=== PATIENT | male | born 1965 | race Hispanic/Latino ===

== ENCOUNTER 2017-10-04 10:21 | Emergency (ER) | payer MEDICARE ==
[2017-10-04] MEDS ORDERED: OXYMETAZOLINE HCL SPRAY 15 ML BOTTLE ONE (10:37)
[2017-10-04 11:27] LABS: INR 0.97 (0.85-1.15); PARTIAL THROMBOPLASTIN TIME 25.2 SEC (26.3-35.5); PROTHROMBIN TIME 10.2 SEC (9.6-11.6)
[2017-10-04 11:55] LABS: CARBON DIOXIDE 24 mmol/L (21-32); CHLORIDE 107 mmol/L (101-111); CREATININE 5.1 mg/dL (0.5-1.5); GLOMERULAR FILTR. RATE CALC 13 mL/min (>60); GLUCOSE,RANDOM 154 mg/dL (70-105); POTASSIUM 4.7 mmol/L (3.5-5.1); SODIUM SERUM 141 mmol/L (136-145); UREA NITROGEN, BLOOD 71 mg/dL (7-18)
[2017-10-04 12:02] LABS: ALCOHOL, BLOOD < 3 mg/dL (0-10)
[2017-10-04 12:05] LABS: BASOPHILS % (AUTO) 0.9 % (0.0-5.0); EOSINOPHILS % (AUTO) 1.5 % (0.0-8.0); HEMATOCRIT 26.1 % (42-54); LYMPHOCYTES % (AUTO) 11.4 % (21.0-51.0); MEAN CORPUSCULAR HEMOGLOBIN 30.3 pg (27.0-33.0); MEAN CORPUSCULAR HGB CONC 33.3 g/dL (32.0-36.0); MONOCYTES % (AUTO) 5.8 % (3.0-13.0); NEUTROPHILS % (AUTO) 80.4 % (40.0-77.0); NUCLEATED RED BLOOD CELLS 0.1 % (0.0-0.19); PLATELET COUNT (AUTO) 212 K/uL (130-400); RED BLOOD CELL COUNT(AUTO) 2.87 MIL/uL (4.50-6.20); RED CELL DISTRIBUTION WIDTH 14.5 % (11.0-15.5); WHITE BLOOD COUNT (AUTO) 10.1 K/uL (4.8-10.8)
[2017-10-04 14:32] LABS: HEMATOCRIT 24.4 % (42-54)
== END 2017-10-04 15:39 | disposition home or self-care (01) ==
LOC: EDH 10:21
DX: R04.0 Epistaxis (principal); I10 Essential (primary) hypertension; E78.5 Hyperlipidemia, unspecified; Z79.82 Long term (current) use of aspirin; Z79.899 Other long term (current) drug therapy; R11.10 Vomiting, unspecified
CPT/HCPCS: 36415; 80048; 82140; 84484; 85025; 85610; 85730; 93005; 96360; 99285; G0480

== ENCOUNTER 2019-02-20 16:40 | Inpatient (IN) | payer MEDICARE | END 2019-02-24 16:40 | disposition left against medical advice (07) | LOC: EDH 16:40 → 2DH 02-22 22:05 → 4CH 02-21 13:20 → EDHIP 19:42 | DX: I12.0 Hypertensive chronic kidney disease with stage 5 chronic kidney disease or end stage renal disease (principal); N18.6 End stage renal disease; I48.91 Unspecified atrial fibrillation; N19 Unspecified kidney failure; E87.70 Fluid overload, unspecified; D64.9 Anemia, unspecified; E11.22 Type 2 diabetes mellitus with diabetic chronic kidney disease; E11.51 Type 2 diabetes mellitus with diabetic peripheral angiopathy without gangrene ==

== ENCOUNTER 2019-03-03 11:25 | Inpatient (IN) | payer MEDICARE ==
[~2019-03-03] VITALS: Ht 167.6 cm; Wt 48.2 kg
[2019-03-03] VITALS: BP 159/99
[~2019-03-03 11:25] MED LIST: ASPI-1181 PO; CLOP75TA32 PO; FERR325T22 PO; FOLI0.8T22 PO; HYDR100T27 PO; METO50 PO; NIFE90TA38 PO; PATI8.4P PO; PRAV40TA3 PO; SEVE800T7 PO; SODI650T PO; VIT D PO
[2019-03-03 11:59] LABS: BASOPHILS % (AUTO) 1.3 % (0.0-5.0); HEMATOCRIT 27.7 % (42-54); LYMPHOCYTES % (AUTO) 14.7 % (21.0-51.0); MEAN CORPUSCULAR HEMOGLOBIN 30.5 pg (27.0-33.0); MEAN CORPUSCULAR VOLUME 92.5 fL (79-99); PLATELET COUNT (AUTO) 136 K/uL (130-400); RED CELL DISTRIBUTION WIDTH 17.8 % (11.0-15.5); WHITE BLOOD COUNT (AUTO) 5.7 K/uL (4.8-10.8)
[2019-03-03 12:14] LABS: BILIRUBIN,TOTAL 0.4 mg/dL (0.2-1.0); POTASSIUM 4.7 mmol/L (3.5-5.1); TOTAL PROTEIN, SERUM 6.9 g/dL (6.0-8.3)
[2019-03-03 12:15] LABS: CREATININE 9.3 mg/dL (0.5-1.5)
[2019-03-03] MEDS ORDERED: GLUCAGON 1MG KIT 1 MG ML IM PRN (14:45)
[2019-03-03] MEDS ORDERED: ONDANSETRON HCL 4 MG/2 ML VIAL IVP PRN (14:45)
[2019-03-03] MEDS ORDERED: DEXTROSE 50%-WATER 50 ML DISP.SYRIN IV PRN (14:45)
[2019-03-03] MEDS ORDERED: ACETAMINOPHEN 325 MG TAB PO PRN ×2 (14:45→22:45)
[2019-03-03 16:15] VITALS: BP 129/81
--- NOTE | 2019-03-03 16:25 | NUR ---
REPORT RECEIVED FROM SAMANTA COLLAZO (ED). PATIENT ADMITTED UNDER DR. GAMEZ'S SERVICES FOR FLUID OVERLOAD AND ERSD. DR. THOMAS CONSULTED FOR LEFT AV FISTULA. DR. ACKERMANFILED AWARE OF CONSULT PER SAMANTA COLLAZO. PATIENT TO BE DIALYZED TODAY. PATIENT STABLE AT THIS TIME.
[2019-03-03] MEDS: INSULIN R PO SS1 SQ SCH ×2 (16:30→22:00)
[2019-03-03] MEDS ORDERED: FOLI1TAB85 PO (17:28)
[2019-03-03] MEDS ORDERED: FERR1GRA2 MC (17:28)
[2019-03-03] MEDS ORDERED: SEVE800T7 PO (17:28)
[2019-03-03] MEDS ORDERED: SODI454P2 MC (17:28)
[2019-03-03] MEDS ORDERED: FURO80TA3 PO (17:28)
[2019-03-03] MEDS ORDERED: PRAV40TA3 PO (17:28)
[2019-03-03] MEDS ORDERED: CHOL200059 PO (17:28)
[2019-03-03] MEDS ORDERED: ASPI-1197 PO (17:28)
[2019-03-03] MEDS ORDERED: HYDR100T27 PO (17:28)
[2019-03-03] MEDS ORDERED: NIFE90TA45 PO (17:28)
[2019-03-03] MEDS ORDERED: METO50TA18 PO (17:28)
[2019-03-03 20:00] VITALS: BP 131/76
[2019-03-03 20:26] LABS: HEMATOCRIT 26.6 % (42-54)
[2019-03-03 20:40] LABS: ALBUMIN 2.7 g/dL (3.5-5.0)
[2019-03-03 20:43] LABS: CREATININE 8.9 mg/dL (0.5-1.5)
[2019-03-03 20:46] LABS: HEMOGLOBIN A1C 4.8 % (4.0-6.0)
[2019-03-03] MEDS ORDERED: SODIUM CHLORIDE 0.9% 10 ML VIAL IVP PRN (22:45)
[2019-03-03] MEDS ORDERED: SODIUM CHLORIDE 0.9% 100 ML IV PRN (22:45)
[2019-03-03] MEDS ORDERED: HEPARIN SODIUM 5000UNIT/ML 1ML VIAL SQ PRN (23:00)
[2019-03-03] MEDS ORDERED: ALBUMIN (HUMAN) 25% 100 ML IV PRN (23:00)
[2019-03-04 04:00] VITALS: BP 155/92
[2019-03-04 04:59] LABS: HEMATOCRIT 24.9 % (42-54); MEAN CORPUSCULAR HEMOGLOBIN 30.9 pg (27.0-33.0); MEAN CORPUSCULAR HGB CONC 33.5 g/dL (32.0-36.0); MEAN CORPUSCULAR VOLUME 92.1 fL (79-99); RED BLOOD CELL COUNT(AUTO) 2.71 MIL/uL (4.50-6.20); RED CELL DISTRIBUTION WIDTH 17.5 % (11.0-15.5); WHITE BLOOD COUNT (AUTO) 5.4 K/uL (4.8-10.8)
[2019-03-04 05:14] LABS: CREATININE 4.5 mg/dL (0.5-1.5); PHOSPHORUS 3.9 mg/dL (2.5-4.9); POTASSIUM 3.3 mmol/L (3.5-5.1)
[2019-03-04 05:39] LABS: PLATELET COUNT (AUTO) 65 K/uL (130-400)
[2019-03-04] MEDS: INSULIN R PO SS1 SQ SCH ×4 (05:48→20:07)
[2019-03-04 07:30] VITALS: BP 155/99
[2019-03-04] MEDS: FAMOTIDINE/PF 20 MG/2 ML VIAL IV SCH (08:23)
--- NOTE | 2019-03-04 08:37 | NUR ---
spoke with luis devlin, dr. joiner's nurse aware of consult and aware of pt's status no new orders yet
--- NOTE | 2019-03-04 08:41 | NUR ---
dr Justino boateng for [facility].
--- NOTE | 2019-03-04 09:15 | NUR ---
DR. GAMEZ CALLED BACK, STATED WILL ROUND LATER ON PATIENT AND FOR PT TO HAVE HD TODAY, AWARE PT HAD HD YESTERDAY EARLY AT 1 AM, STATED AGAIN TODAY
--- NOTE | 2019-03-04 09:16 | NUR ---
HD NURSE AWARE OF ORDER FOR PT TO HAVE HD TODAY
--- NOTE | 2019-03-04 10:00 | NUR ---
DR. MELGOZA AWARE OF PT STATUS STATED HE HIMSELF WILL PUT ORDERS FOR SURGERY FOR WEDNESDAY AND IT WILL BE DR. NAVARRO,
[2019-03-04 11:00] VITALS: BP 158/98
--- NOTE | 2019-03-04 12:27 | NUR ---
INITIAL: Met with pt this morning to discuss dcp. Pt states that he lives w spouse. Prior to admission was independent w ambulation. He requires assistance w ADLs. Has provider services 3hr/day. Pt owns a cane, walker and wc. Per pt he was previously receiving HD @ [facility] but stopped going dt transportation issues. PT mentions that he is requesting to be set up @ [facility]. CORKY/PC consent signed for [facility]. Addendum: 03/04/19 at 1232 by TINY BATES Amended: Links added.
[2019-03-04] MEDS ORDERED: HEPARIN SODIUM 5000UNIT/ML 1ML VIAL IJ PRN (12:45)
--- NOTE | 2019-03-04 13:57 | NUR ---
DR. AYALA AWARE OF PT STATUS MADE AWAR OF SURGERY PLAN FOR AV FISTULA FOR WEDNESDAY WITH DR. NAVARRO, HE STATED HE HAD ALREADY SPOKEN WITH DR. SOLORZANO, MADE AWARE THAT DR. SOLORZANO HAD GIVEN ME ORDERS TO RESUME PATIENT'S HOME MEDICATIONS BUT HAD NOT RESUME THEM YET, SINCE I WAS WAITING FOR HIM. HE STATED THAT WAS GOOD, AND GAVE ME ORDERS REGARDING PT MEDICATIONS WHICH ONES TO CONTINUE AND WHICH ONES TO HOLD REFER TO MED REC FOR MORE INFORMATION
[2019-03-04] MEDS ORDERED: COMPOUND IV REFRIGERATED 1 EACH IVSOLN MISC PRN (14:15)
[2019-03-04] MEDS: IPRATROPIUM/ALBUTEROL SULFATE 3 ML SOLUTION IH PRN (14:43)
[2019-03-04] MEDS: EPOETIN ALFA 10,000 UNIT/ML VIAL SQ SCH (15:34)
[2019-03-04] MEDS: IRON SUCROSE COMPLEX 100 MG in SODIUM CHLORIDE 0.9% 50 ML IV SCH (15:35)
[2019-03-04 16:00] VITALS: BP 132/93
--- NOTE | 2019-03-04 16:44 | NUR ---
PT HAD HD FROM 1145 TO 1445 PT TOLERATED PROCEDURE WELL PER DIALYSIS NURSE REMOVED 2.7 LITERS
[2019-03-04] MEDS: SEVELAMER HCL 800 MG TABLET PO SCH (16:58)
[2019-03-04 20:00] VITALS: BP 159/104
[2019-03-04] MEDS: METOPROLOL TARTRATE 50 MG TAB PO SCH (20:04)
[2019-03-04] MEDS: ATORVASTATIN CALCIUM 10 MG TABLET PO SCH (20:04)
--- NOTE | 2019-03-04 20:49 | NUR ---
Paged Doctor Paged Dr. Cruz about pt's blood Pressure. Waiting for call back.
--- NOTE | 2019-03-04 20:54 | NUR ---
Nursing Note Dr. Cruz called back. I informed him that pt's blood pressure is 159/104 and I gave the metoprolol 50mg as ordered and blood pressure after recheck is 166/109 but I have nothing else to give him for his blood pressure. Dr. Cruz stated "Don't worry about it. Follow the orders on the DEC before you call me, he has metoprolol and nifedipine." I tried to explain to him that it wasn't given during day shift and there is nothing due for me except metoprolol. stated for me to give the metoprolol and nifedipine.
[2019-03-04] MEDS ORDERED: NIFEDIPINE ER 30 MG TAB PO SCH (21:15)
[2019-03-05] VITALS (7 sets, daily range): BP systolic 149–165; BP diastolic 92–108
[2019-03-05] MEDS: INSULIN R PO SS1 SQ SCH ×4 (05:35→21:00)
[2019-03-05 05:37] LABS: HEMATOCRIT 25.5 % (42-54); MEAN CORPUSCULAR HEMOGLOBIN 30.3 pg (27.0-33.0); MEAN CORPUSCULAR HGB CONC 33.1 g/dL (32.0-36.0); MEAN CORPUSCULAR VOLUME 91.4 fL (79-99); PLATELET COUNT (AUTO) 43 K/uL (130-400); RED BLOOD CELL COUNT(AUTO) 2.79 MIL/uL (4.50-6.20); RED CELL DISTRIBUTION WIDTH 17.4 % (11.0-15.5); WHITE BLOOD COUNT (AUTO) 5.7 K/uL (4.8-10.8)
[2019-03-05 06:08] LABS: CREATININE 4.3 mg/dL (0.5-1.5); PHOSPHORUS 4.5 mg/dL (2.5-4.9); POTASSIUM 4.1 mmol/L (3.5-5.1)
[2019-03-05 06:24] LABS: % IRON SATURATION 36.6 % (30-44)
[2019-03-05] MEDS: IPRATROPIUM/ALBUTEROL SULFATE 3 ML SOLUTION IH PRN (07:08)
[2019-03-05] MEDS: METOPROLOL TARTRATE 50 MG TAB PO SCH ×2 (08:33→22:09)
[2019-03-05] MEDS: NIFEDIPINE ER 30 MG TAB PO SCH (08:33)
[2019-03-05] MEDS: FAMOTIDINE/PF 20 MG/2 ML VIAL IV SCH (08:33)
[2019-03-05] MEDS: FOLIC ACID/VITAMIN B COMP W-C 1 MG CAPSULE PO SCH (08:33)
[2019-03-05] MEDS: SEVELAMER HCL 800 MG TABLET PO SCH ×3 (08:33→16:55)
[2019-03-05] MEDS ORDERED: COMPOUND IV MISC 1 EACH IVSOLN MISC PRN (09:30)
[2019-03-05] MEDS: IRON SUCROSE COMPLEX 100 MG in SODIUM CHLORIDE 0.9% 50 ML IV SCH (10:46)
[2019-03-05] MEDS: EPOETIN ALFA 10,000 UNIT/ML VIAL SQ SCH (12:35)
[2019-03-05] MEDS: ATORVASTATIN CALCIUM 10 MG TABLET PO SCH (22:09)
[2019-03-06] VITALS (15 sets, daily range): BP systolic 102–210; BP diastolic 71–109
[2019-03-06 05:15] LABS: HEMATOCRIT 24.2 % (42-54); MEAN CORPUSCULAR HEMOGLOBIN 31.2 pg (27.0-33.0); MEAN CORPUSCULAR VOLUME 91.6 fL (79-99); PLATELET COUNT (AUTO) 60 K/uL (130-400); RED BLOOD CELL COUNT(AUTO) 2.64 MIL/uL (4.50-6.20); RED CELL DISTRIBUTION WIDTH 17.4 % (11.0-15.5); WHITE BLOOD COUNT (AUTO) 5.5 K/uL (4.8-10.8)
[2019-03-06 05:26] LABS: CREATININE 5.7 mg/dL (0.5-1.5); POTASSIUM 4.3 mmol/L (3.5-5.1)
[2019-03-06 05:29] LABS: INR 0.97 (0.85-1.15); PARTIAL THROMBOPLASTIN TIME 29.6 SEC (26.3-35.5); PROTHROMBIN TIME 10.2 SEC (9.6-11.6)
--- NOTE | 2019-03-06 05:35 | NUR ---
CONSENT FO AV FISTULA SIGNED AND IN THE CHART. EDUCATIONAL TEACHING PROVIDED FOR PREOP AND POST. EXITCARE HANDOUTS PROVIDED. NO QUESTIONS FROM THE PATIENT AT THIS TIME.
[2019-03-06] MEDS: INSULIN R PO SS1 SQ SCH ×4 (06:16→21:00)
--- NOTE | 2019-03-06 06:30 | NUR ---
MD ORDER CLARIFICATION SMALL ARMS REPAIRER CONTACTED ALAYNA NAVARRO MD TO CLARIFY PREOP ORDERS. BLOOD PRODUCTS TO BE GIVEN NEEDED IN OR. PRE-OP CLIPPING OF LEFT UPPER EXTREMITY INSTEAD OF CHIN TO ANKLE.
--- NOTE | 2019-03-06 06:45 | NUR ---
NPO PATIENT INFORMED THAT HE WAS NPO UNTIL THE PROCEDURE, VERBALIZED AGREEMENT. PATIENT SERVED HIMSELF A CUP OF COFFEE, WAS ONCE AGAIN INFORMED THAT HE CAN NOT HAVE ANYTHING TO EAT OR DRINK UNTIL THE PROCEDURE. HE SAID, "IT'LL BE A LONG TIME UNTIL THEY COME GET ME" AND CONTINUED TO DRINK THE COFFEE.
--- NOTE | 2019-03-06 06:59 | NUR ---
Called Dr Montelongo to clarify order for Platelet and FFP.He said not to transfuse blood products now.
[2019-03-06] MEDS: IPRATROPIUM/ALBUTEROL SULFATE 3 ML SOLUTION IH PRN ×2 (07:12→21:17)
--- NOTE | 2019-03-06 07:48 | NUR ---
ANESTHESIA Called Fernando from Anesthesia re pt taking a cup of coffee.He said he will tell the anesthesiologist.No need to call dr story.
[2019-03-06] MEDS: SEVELAMER HCL 800 MG TABLET PO SCH ×3 (08:00→17:00)
[2019-03-06] MEDS: METOPROLOL TARTRATE 50 MG TAB PO SCH ×2 (09:00→22:37)
[2019-03-06] MEDS: NIFEDIPINE ER 30 MG TAB PO SCH (09:00)
[2019-03-06] MEDS: FOLIC ACID/VITAMIN B COMP W-C 1 MG CAPSULE PO SCH (09:00)
[2019-03-06] MEDS: FAMOTIDINE/PF 20 MG/2 ML VIAL IV SCH (09:48)
[2019-03-06] MEDS: IRON SUCROSE COMPLEX 100 MG in SODIUM CHLORIDE 0.9% 50 ML IV SCH (09:48)
[2019-03-06] MEDS: EPOETIN ALFA 10,000 UNIT/ML VIAL SQ SCH (13:45)
[2019-03-06] MEDS ORDERED: CEFAZOLIN SODIUM 1 GM VIAL IVP PRN (14:00)
[2019-03-06] MEDS ORDERED: SODIUM CHLORIDE 0.9% 1000ML 1,000 ML IV ONE (14:53)
[2019-03-06] MEDS ORDERED: LIDOCAINE PF 2% 5ML ABBOJECT ONE (15:25)
[2019-03-06] MEDS ORDERED: PROPOFOL 10 MG/ML 20ML VIAL IV ONE (15:25)
[2019-03-06] MEDS ORDERED: TRAMADOL HCL 50 MG TABLET PO PRN ×2 (15:30)
[2019-03-06] MEDS ORDERED: ACETAMINOPHEN 325 MG TAB PO PRN (15:30)
[2019-03-06] MEDS ORDERED: SUCCINYLCHOLINE 200MG/10ML SYR ONE (15:30)
[2019-03-06] MEDS ORDERED: MIDAZOLAM HCL 1 MG/ML 2ML VIAL ONE (15:39)
[2019-03-06] MEDS ORDERED: FENTANYL CITRATE PF 50 MCG/1 ML 2ML VIAL ONE (15:46)
[2019-03-06] MEDS ORDERED: BACITRACIN 50,000 UNIT VIAL ONE ×2 (15:52→15:56)
[2019-03-06] MEDS ORDERED: OCTYL 2-CYANOACRYLATE 1 EACH TP ONE (15:56)
[2019-03-06] MEDS ORDERED: ONDANSETRON HCL 4 MG/2 ML VIAL ONE (15:57)
[2019-03-06] MEDS ORDERED: SODIUM CHLORIDE 0.9% 10 ML VIAL ONE (16:00)
[2019-03-06] MEDS ORDERED: HEPARIN SODIUM 1000UNIT/ML 10ML VIAL ONE (16:05)
--- NOTE | 2019-03-06 17:00 | NUR ---
cm note call made to [facility] and states they received clinical for chair, but still pending for new AV access info, and also need last HD tx. and Hep s. antigen. called lab, and states hep panel still pending possible ready tomorrow. pt still pending for AV procedure, and for last HD tx.
[2019-03-06] MEDS ORDERED: EPOETIN ALFA 10,000 UNIT/ML VIAL SQ SCH (21:00)
--- NOTE | 2019-03-06 22:02 | NUR ---
POST DIALYSIS DIALYSIS NURSE REMOVED 3 LITERS IN 3 HOURS. VITALS WITHIN NORMAL LIMITS FOR PATIENT. AV FISTUAL PLACED IN LEFT LOWER ARM EARLIER TODAY. RADIAL PULSE PALPABLE, FINGERS WARM, ABLE TO MOVE. NO COMPLAINTS OF DISCOMFORT FROM PATIENT AT THIS TIME. REINFORCED SAFETY PRECAUTIONS, BED LOCKED IN LOWEST POSITION- CALL LIGHT WITHIN REACH. Addendum: 03/07/19 at 9836 by JOSEPH SILVA RN RN Amended: Links added.
[2019-03-06] MEDS: ATORVASTATIN CALCIUM 10 MG TABLET PO SCH (22:37)
[2019-03-07] VITALS: BP 138/85
[2019-03-07] MEDS: IPRATROPIUM/ALBUTEROL SULFATE 3 ML SOLUTION IH PRN ×3 (01:06→11:25)
[2019-03-07 04:11] VITALS: BP 126/79
[2019-03-07 05:11] LABS: BASOPHILS % (AUTO) 0.7 % (0.0-5.0); EOSINOPHILS % (AUTO) 0.6 % (0.0-8.0); HEMATOCRIT 25.3 % (42-54); LYMPHOCYTES % (AUTO) 12.5 % (21.0-51.0); MEAN CORPUSCULAR HEMOGLOBIN 30.3 pg (27.0-33.0); MEAN CORPUSCULAR VOLUME 91.8 fL (79-99); MONOCYTES % (AUTO) 12.4 % (3.0-13.0); NEUTROPHILS % (AUTO) 73.8 % (40.0-77.0); PLATELET COUNT (AUTO) 73 K/uL (130-400); RED BLOOD CELL COUNT(AUTO) 2.75 MIL/uL (4.50-6.20); RED CELL DISTRIBUTION WIDTH 17.3 % (11.0-15.5); WHITE BLOOD COUNT (AUTO) 5.8 K/uL (4.8-10.8)
[2019-03-07 05:28] LABS: ALBUMIN 2.8 g/dL (3.5-5.0); BILIRUBIN,TOTAL 0.3 mg/dL (0.2-1.0); CREATININE 4.3 mg/dL (0.5-1.5); POTASSIUM 3.8 mmol/L (3.5-5.1); TOTAL PROTEIN, SERUM 6.5 g/dL (6.0-8.3)
[2019-03-07 06:14] LABS: HEPATITIS Bs ANTIGEN SCREEN P Negative (Negative)
[2019-03-07] MEDS: INSULIN R PO SS1 SQ SCH ×2 (07:30→11:30)
[2019-03-07] MEDS: FAMOTIDINE/PF 20 MG/2 ML VIAL IV SCH (09:11)
[2019-03-07] MEDS: SEVELAMER HCL 800 MG TABLET PO SCH ×2 (09:11→11:53)
[2019-03-07] MEDS: IRON SUCROSE COMPLEX 100 MG in SODIUM CHLORIDE 0.9% 50 ML IV SCH (09:11)
[2019-03-07] MEDS: FOLIC ACID/VITAMIN B COMP W-C 1 MG CAPSULE PO SCH (09:11)
[2019-03-07] MEDS: METOPROLOL TARTRATE 50 MG TAB PO SCH (09:13)
[2019-03-07] MEDS: NIFEDIPINE ER 30 MG TAB PO SCH (09:13)
[2019-03-07 12:00] VITALS: BP 140/89
[2019-03-07] MEDS: EPOETIN ALFA 10,000 UNIT/ML VIAL SQ SCH (13:36)
--- NOTE | 2019-03-07 15:00 | NUR ---
CM REFERRAL- HD CHAIR CONFIRMED ALL FINAL INFO FAXED TO [facility] RECD CALL BACK THAT PT IS ACCEPTED. RENAL MWF- PT STATES WANTED OPPOSITE DAYS HIS - R/T BICYCLE REPAIRMAN OF GRANDCHILD. PT VERBALIZED UNDERSTANDING AND IN AGREEMENT.
[2019-03-07] MEDS ORDERED: METO100T14 PO (17:22)
== END 2019-03-07 17:35 | disposition home or self-care (01) | DRG 673 ==
LOC: EDH 11:25 → EDHIP 13:35 → 3CH 16:23
PROVIDERS: ADMIT Internal Medicine Nephrology; ATTEND Internal Medicine Nephrology
PROC: 5A1D70Z Performance of Urinary Filtration, Intermittent, Less than 6 Hours Per Day (ICD-10-PCS; 2019-03-03)
PROC: 5A1D70Z Performance of Urinary Filtration, Intermittent, Less than 6 Hours Per Day (ICD-10-PCS; 2019-03-04)
PROC: 5A1D70Z Performance of Urinary Filtration, Intermittent, Less than 6 Hours Per Day (ICD-10-PCS; 2019-03-06)
PROC: 031C0ZF Bypass Left Radial Artery to Lower Arm Vein, Open Approach (ICD-10-PCS; principal; 2019-03-06 15:35)
DX: I12.0 Hypertensive chronic kidney disease with stage 5 chronic kidney disease or end stage renal disease (principal); N18.6 End stage renal disease; E11.22 Type 2 diabetes mellitus with diabetic chronic kidney disease; I25.10 Atherosclerotic heart disease of native coronary artery without angina pectoris; Z95.5 Presence of coronary angioplasty implant and graft; J44.9 Chronic obstructive pulmonary disease, unspecified; Z91.19 Patient's noncompliance with other medical treatment and regimen; D64.9 Anemia, unspecified; D69.6 Thrombocytopenia, unspecified; E11.51 Type 2 diabetes mellitus with diabetic peripheral angiopathy without gangrene; E11.21 Type 2 diabetes mellitus with diabetic nephropathy; E78.5 Hyperlipidemia, unspecified; Z99.2 Dependence on renal dialysis; Z90.49 Acquired absence of other specified parts of digestive tract
CPT/HCPCS: 36415; 71045; 80048; 80053; 80061; 82040; 82565; 82728; 82948; 83036; 83540; 83550; 84100; 84520; 85014; 85018; 85025; 85027; 85610; 85730; 86701; 86704; 86706; 86850; 86900; 86901; 86922; 87340; 87390; 87520; 90935; 93005; 94640; 94664; A4218; G0378; J0330; J0690; J0885; J1644; J1756; J2001; J2250; J2405; J2704; J3010; J3490; J7030; J7040

== ENCOUNTER 2019-06-07 19:28 | Inpatient (IN) | payer MEDICARE | END 2019-06-09 12:45 | disposition left against medical advice (07) | LOC: EDH 19:28 → EDHIP 21:07 → 3AH 22:11 ==

== ENCOUNTER 2019-06-30 17:11 | Inpatient (IN) | payer MEDICARE | END 2019-07-07 15:18 | disposition home or self-care (01) | LOC: EDH 17:11 → 2AH 07-01 00:08 → EDHIP 22:01 | DX: N18.6 End stage renal disease (principal); J96.21 Acute and chronic respiratory failure with hypoxia; J44.1 Chronic obstructive pulmonary disease with (acute) exacerbation; E87.70 Fluid overload, unspecified; Z99.2 Dependence on renal dialysis ==

== ENCOUNTER 2019-07-20 14:03 | Inpatient (IN) | payer MEDICARE ==
[~2019-07-20 14:03] MED LIST changes: +APIX2.5T PO; -ASPI-1181 PO; +CHOL200059 PO; +FAMO20TA8 PO; -FERR325T22 PO; +FURO80TA3 PO; -HYDR100T27 PO; +IPRA3AMP24 IH; +IPRA4AER IH; +METO100T14 PO; -METO50 PO; -NIFE90TA38 PO; -PATI8.4P PO; -SODI650T PO; -VIT D PO
[2019-07-20 14:34] LABS: BASOPHILS % (AUTO) 0.4 % (0.0-5.0); EOSINOPHILS % (AUTO) 0.2 % (0.0-8.0); LYMPHOCYTES % (AUTO) 4.5 % (21.0-51.0); MEAN CORPUSCULAR HGB CONC 32.2 g/dL (32.0-36.0); MEAN CORPUSCULAR VOLUME 93.2 fL (79-99); MONOCYTES % (AUTO) 4.7 % (3.0-13.0); NEUTROPHILS % (AUTO) 90.2 % (40.0-77.0); NUCLEATED RED BLOOD CELLS 0.1 % (0.0-0.19); PLATELET COUNT (AUTO) 117 K/uL (130-400); RED BLOOD CELL COUNT(AUTO) 3.01 MIL/uL (4.50-6.20); RED CELL DISTRIBUTION WIDTH 20.3 % (11.0-15.5); WHITE BLOOD COUNT (AUTO) 11.6 K/uL (4.8-10.8)
[2019-07-20] MEDS ORDERED: SODIUM CHLORIDE 0.9% 100 ML IV ONE (14:36)
[2019-07-20] MEDS ORDERED: DILTIAZEM HCL 125 MG/25 ML VIAL IV ONE (14:36)
[2019-07-20 14:49] LABS: ALBUMIN 2.8 g/dL (3.5-5.0); BILIRUBIN,TOTAL 0.6 mg/dL (0.2-1.0); POTASSIUM 5.5 mmol/L (3.5-5.1); TOTAL PROTEIN, SERUM 6.8 g/dL (6.0-8.3)
[2019-07-20 14:53] LABS: CREATININE 8.6 mg/dL (0.5-1.5)
[2019-07-20 15:00] LABS: B-TYPE NATRIURETIC PEPTIDE > 5000 pg/mL (0-100)
[2019-07-20] MEDS ORDERED: DILTIAZEM 125MG+100 ML NS 125 ML IV PRN (20:00)
[2019-07-20 20:18] LABS: INR 1.08 (0.85-1.15); PARTIAL THROMBOPLASTIN TIME 32.4 SEC (26.3-35.5); PROTHROMBIN TIME 11.3 SEC (9.6-11.6)
[2019-07-20] MEDS ORDERED: FAMOTIDINE 20MG TAB 20 MG TAB ONE (20:19)
[2019-07-20] MEDS ORDERED: FUROSEMIDE 10 MG/ML 4ML VIAL ONE (20:19)
[2019-07-20 23:06] LABS: BILIRUBIN,URINE Negative (NEGATIVE); COLOR,URINE Yellow (YELLOW); GLUCOSE, URINE (UA) TRACE mg/dL (NEGATIVE); KETONES,URINE Negative (NEGATIVE); LEUKOCYTE ESTERASE ,URINE Small (NEGATIVE); NITRATE,URINE Negative (NEGATIVE); OCCULT BLOOD,URINE Negative (NEGATIVE); PH,URINE 7.5 (5.0-8.0); PROTEIN,URINE 300 mg/dL (NEGATIVE)
[2019-07-20 23:09] LABS: APPEARANCE,URINE CLEAR (CLEAR)
[2019-07-20 23:21] LABS: BACTERIA,URINE Few /HPF (None Seen); RBC,URINE 0-1 /HPF (0-1)
[2019-07-20] MEDS: IPRATROPIUM/ALBUTEROL SULFATE 3 ML SOLUTION IH SCH (23:42)
[2019-07-21] MEDS: CEFTRIAXONE SODIUM 1 GM IVP SCH (05:00)
[2019-07-21 05:24] LABS: BASOPHILS % (AUTO) 0.3 % (0.0-5.0); EOSINOPHILS % (AUTO) 2.5 % (0.0-8.0); HEMATOCRIT 25.4 % (42-54); LYMPHOCYTES % (AUTO) 8.1 % (21.0-51.0); MEAN CORPUSCULAR HEMOGLOBIN 30.2 pg (27.0-33.0); MEAN CORPUSCULAR HGB CONC 32.5 g/dL (32.0-36.0); MONOCYTES % (AUTO) 15.8 % (3.0-13.0); NEUTROPHILS % (AUTO) 73.3 % (40.0-77.0); NUCLEATED RED BLOOD CELLS 0.1 % (0.0-0.19); PLATELET COUNT (AUTO) 92 K/uL (130-400); RED BLOOD CELL COUNT(AUTO) 2.73 MIL/uL (4.50-6.20); RED CELL DISTRIBUTION WIDTH 20.2 % (11.0-15.5); WHITE BLOOD COUNT (AUTO) 8.8 K/uL (4.8-10.8)
[2019-07-21 05:34] LABS: POTASSIUM 5.2 mmol/L (3.5-5.1)
[2019-07-21 05:40] LABS: CREATININE 8.8 mg/dL (0.5-1.5)
[2019-07-21] MEDS: SODIUM POLYSTYRENE SULFONATE 15 GM/60 ML ML PO SCH ×2 (06:00→23:43)
[2019-07-21] MEDS: IPRATROPIUM/ALBUTEROL SULFATE 3 ML SOLUTION IH SCH ×4 (06:50→23:14)
[2019-07-21] MEDS: FUROSEMIDE 10 MG/ML 4ML VIAL IV SCH ×2 (08:00→19:46)
[2019-07-21] MEDS ORDERED: HEPARIN SODIUM 5000UNIT/ML 1ML VIAL ONE (08:33)
[2019-07-21] MEDS ORDERED: FAMOTIDINE 20MG TAB 20 MG TAB PO SCH (09:00)
[2019-07-21] MEDS ORDERED: LIDOCAINE HCL-MPF 1% 2ML VIAL IJ PRN (09:00)
[2019-07-21] MEDS ORDERED: 0.9% SODIUM CHLORIDE 1000 ML IV BAG IV PRN (09:00)
[2019-07-21] MEDS ORDERED: HEPARIN SODIUM 5000UNIT/ML 1ML VIAL IJ PRN ×2 (09:00)
[2019-07-21] MEDS ORDERED: SODIUM CHLORIDE 0.9% 1000ML 1,000 ML IV PRN (09:00)
[2019-07-21] MEDS ORDERED: NITROGLYCERIN 0.4 MG SL TAB SL PRN (09:00)
[2019-07-21] MEDS ORDERED: DILTIAZEM HCL 125 MG/25 ML VIAL IV ONE (09:02)
[2019-07-21] MEDS ORDERED: SODIUM CHLORIDE 0.9% 100 ML IV ONE ×2 (09:03→12:00)
[2019-07-21] MEDS ORDERED: NITROGLYCERIN 1GM/1 INCH PACKET TD ONE (10:15)
[2019-07-21] MEDS ORDERED: METOPROLOL TARTRATE 25 MG TAB PO SCH (10:30)
[2019-07-21] MEDS ORDERED: IPRATROPIUM/ALBUTEROL SULFATE 3 ML SOLUTION IH PRN ×2 (11:00)
[2019-07-21] MEDS: INSULIN HUMULIN R 100 UNIT/ML 3ML SQ SCH ×3 (11:30→20:14)
[2019-07-21] MEDS ORDERED: IPRATROPIUM/ALBUTEROL SULFATE 3 ML SOLUTION IH ONE (11:31)
[2019-07-21] MEDS ORDERED: FUROSEMIDE 10 MG/ML 4ML VIAL ONE (11:59)
[2019-07-21] MEDS ORDERED: CEFTRIAXONE SODIUM 1 GM ONE (11:59)
[2019-07-21] MEDS: SEVELAMER HCL 800 MG TABLET PO SCH ×2 (12:30→17:19)
[2019-07-21] MEDS ORDERED: METOPROLOL TARTRATE 25 MG TAB ONE (13:03)
[2019-07-21] MEDS ORDERED: ACETAMINOPHEN 325 MG TAB ONE (13:55)
[2019-07-21] MEDS ORDERED: PNEUMOCOCCAL VACCINE POLYVALENT 0.5 ML/VIAL [PPV] IM ONE (16:45)
[2019-07-21] MEDS: FUROSEMIDE 80 MG TABLET PO SCH (17:19)
[2019-07-21] MEDS: ACETAMINOPHEN 325 MG TAB PO PRN (17:21)
[2019-07-21 19:35] VITALS: BP 119/85
[2019-07-21] MEDS: FAMOTIDINE 20MG TAB 20 MG TAB PO SCH (19:46)
[2019-07-21] MEDS: METOPROLOL TARTRATE 50 MG TAB PO SCH (19:46)
[2019-07-21] MEDS: APIXABAN 2.5 MG TABLET PO SCH (19:50)
[2019-07-21 23:30] VITALS: BP 113/75
[2019-07-22 04:17] VITALS: BP 123/78
[2019-07-22] MEDS: CEFTRIAXONE SODIUM 1 GM IVP SCH (05:37)
[2019-07-22] MEDS: IPRATROPIUM/ALBUTEROL SULFATE 3 ML SOLUTION IH SCH ×3 (06:31→20:54)
[2019-07-22] MEDS: INSULIN HUMULIN R 100 UNIT/ML 3ML SQ SCH ×4 (06:34→21:00)
[2019-07-22 07:05] VITALS: BP 133/89
[2019-07-22 07:13] LABS: HEPATITIS A ANTIBODY IGM Negative (Negative); HEPATITIS B CORE IGM Negative (Negative); HEPATITIS Bs ANTIGEN SCREEN P Negative (Negative)
[2019-07-22] MEDS: FUROSEMIDE 10 MG/ML 4ML VIAL IV SCH ×2 (07:16→16:34)
[2019-07-22] MEDS: SEVELAMER HCL 800 MG TABLET PO SCH ×3 (08:18→16:34)
[2019-07-22] MEDS: FUROSEMIDE 80 MG TABLET PO SCH ×2 (08:18→16:34)
[2019-07-22] MEDS: CHOLECALCIFEROL 5000 UNIT PO SCH (09:00)
[2019-07-22] MEDS: APIXABAN 2.5 MG TABLET PO SCH ×2 (09:50→23:29)
[2019-07-22] MEDS: CLOPIDOGREL BISULFATE 75 MG TAB PO SCH (09:50)
[2019-07-22] MEDS: FOLIC ACID/VITAMIN B COMP W-C 1 MG CAP/TAB PO SCH (09:50)
[2019-07-22] MEDS: METOPROLOL TARTRATE 50 MG TAB PO SCH ×2 (09:51→23:29)
[2019-07-22] MEDS: SIMVASTATIN 20 MG TABLET PO SCH (09:51)
[2019-07-22 11:00] VITALS: BP 142/86
--- NOTE | 2019-07-22 12:50 | NUR ---
15 L 02 ANDNON REBREATHERON PATIENT WHENTHERAPY ENTERS ROOM. GAIT NOTTESTED. EOB ONLY. 02 SATS 100% hr IN UPPER 90S Addendum: 07/22/19 at 1251 by LILLIAN PERRY, PT PT Amended: Links added.
[2019-07-22 15:00] VITALS: BP 133/90
[2019-07-22] MEDS ORDERED: PNEUMOCOCCAL VACCINE POLYVALENT 0.5 ML/VIAL [PPV] ONE (17:38)
[2019-07-22 19:30] VITALS: BP 151/92
[2019-07-22] MEDS: ACETAMINOPHEN 325 MG TAB PO PRN (21:47)
[2019-07-22] MEDS: FAMOTIDINE 20MG TAB 20 MG TAB PO SCH (23:29)
--- NOTE | 2019-07-22 23:30 | NUR ---
DIALYSIS WAS STOPPED BEFORE COMPLETION BECAUSE PT COMPLAINED OF SOB (on nonrebreather mask) AND CHEST LATERAL PAIN, NO RADIATING PAIN. 1 LITER WAS REMOVED. I CALLED [facility] HOSPITALIST. PT GIVEN MEDS AFTER DIALYSIS. DIALYSIS NURSE CALLED DR DRUMMOND. PENDING CALL BACK.
[2019-07-22 23:48] VITALS: BP 139/99
[2019-07-23 04:16] VITALS: BP 117/86
[2019-07-23 04:23] LABS: BASOPHILS % (AUTO) 0.4 % (0.0-5.0); EOSINOPHILS % (AUTO) 4.1 % (0.0-8.0); HEMATOCRIT 24.4 % (42-54); LYMPHOCYTES % (AUTO) 10.4 % (21.0-51.0); MEAN CORPUSCULAR HEMOGLOBIN 30.1 pg (27.0-33.0); MEAN CORPUSCULAR HGB CONC 32.3 g/dL (32.0-36.0); MEAN CORPUSCULAR VOLUME 93.3 fL (79-99); MONOCYTES % (AUTO) 13.8 % (3.0-13.0); NEUTROPHILS % (AUTO) 71.3 % (40.0-77.0); PLATELET COUNT (AUTO) 59 K/uL (130-400); RED BLOOD CELL COUNT(AUTO) 2.62 MIL/uL (4.50-6.20); RED CELL DISTRIBUTION WIDTH 20.3 % (11.0-15.5); WHITE BLOOD COUNT (AUTO) 7.2 K/uL (4.8-10.8)
[2019-07-23 04:33] LABS: CREATININE 5.1 mg/dL (0.5-1.5); POTASSIUM 4.3 mmol/L (3.5-5.1)
[2019-07-23] MEDS: CEFTRIAXONE SODIUM 1 GM IVP SCH (05:07)
[2019-07-23] MEDS: INSULIN HUMULIN R 100 UNIT/ML 3ML SQ SCH ×2 (06:16→11:30)
[2019-07-23] MEDS: IPRATROPIUM/ALBUTEROL SULFATE 3 ML SOLUTION IH SCH ×2 (06:33→11:27)
[2019-07-23 07:05] VITALS: BP 134/96
[2019-07-23] MEDS: FUROSEMIDE 10 MG/ML 4ML VIAL IV SCH (07:13)
[2019-07-23] MEDS: SEVELAMER HCL 800 MG TABLET PO SCH ×2 (08:32→12:22)
[2019-07-23] MEDS: FUROSEMIDE 80 MG TABLET PO SCH (08:32)
[2019-07-23] MEDS: APIXABAN 2.5 MG TABLET PO SCH (09:00)
[2019-07-23] MEDS: CHOLECALCIFEROL 5000 UNIT PO SCH (09:00)
[2019-07-23] MEDS: CLOPIDOGREL BISULFATE 75 MG TAB PO SCH (09:07)
[2019-07-23] MEDS: METOPROLOL TARTRATE 50 MG TAB PO SCH (09:09)
[2019-07-23] MEDS: FOLIC ACID/VITAMIN B COMP W-C 1 MG CAP/TAB PO SCH (09:09)
[2019-07-23] MEDS: SIMVASTATIN 20 MG TABLET PO SCH (09:09)
[2019-07-23 11:00] VITALS: BP 143/81
--- NOTE | 2019-07-23 11:47 | NUR ---
100% 02 ON 15 l Pt TAKES OFF TO TRANSFER AND FROPS TO 84% NOT SYMPTOMATIC, LIMITED INSIGHT INTO CONDITION. RESTINGHR 108 BP 138/68. Pt UP TO CHAIR. Addendum: 07/23/19 at 1148 by LILLIAN PERRY, PT PT Amended: Links added.
== END 2019-07-23 14:52 | disposition home or self-care (01) | DRG 291 ==
LOC: EDH 14:03 → EDHIP 19:56 → 2DH 07-21 14:39
PROVIDERS: ADMIT Internal Medicine; ATTEND Internal Medicine
PROC: 5A1D70Z Performance of Urinary Filtration, Intermittent, Less than 6 Hours Per Day (ICD-10-PCS; principal; 2019-07-21)
PROC: 3E0234Z Introduction of Serum, Toxoid and Vaccine into Muscle, Percutaneous Approach (ICD-10-PCS; 2019-07-21)
PROC: 5A1D70Z Performance of Urinary Filtration, Intermittent, Less than 6 Hours Per Day (ICD-10-PCS; 2019-07-22)
DX: I13.2 Hypertensive heart and chronic kidney disease with heart failure and with stage 5 chronic kidney disease, or end stage renal disease (principal); N18.6 End stage renal disease; I50.33 Acute on chronic diastolic (congestive) heart failure; J96.00 Acute respiratory failure, unspecified whether with hypoxia or hypercapnia; N39.0 Urinary tract infection, site not specified; J44.1 Chronic obstructive pulmonary disease with (acute) exacerbation; E44.0 Moderate protein-calorie malnutrition; J98.11 Atelectasis; E11.22 Type 2 diabetes mellitus with diabetic chronic kidney disease; D63.8 Anemia in other chronic diseases classified elsewhere; D69.6 Thrombocytopenia, unspecified; E11.21 Type 2 diabetes mellitus with diabetic nephropathy; E11.51 Type 2 diabetes mellitus with diabetic peripheral angiopathy without gangrene; E78.5 Hyperlipidemia, unspecified; F17.200 Nicotine dependence, unspecified, uncomplicated; I25.10 Atherosclerotic heart disease of native coronary artery without angina pectoris; Z16.12 Extended spectrum beta lactamase (ESBL) resistance; B96.20 Unspecified Escherichia coli [E. coli] as the cause of diseases classified elsewhere; I48.0 Paroxysmal atrial fibrillation; Z99.2 Dependence on renal dialysis; Z79.01 Long term (current) use of anticoagulants; Z91.15 Patient's noncompliance with renal dialysis; Z91.19 Patient's noncompliance with other medical treatment and regimen; Z88.5 Allergy status to narcotic agent; Z95.5 Presence of coronary angioplasty implant and graft; Z23 Encounter for immunization; Z83.3 Family history of diabetes mellitus; Z82.49 Family history of ischemic heart disease and other diseases of the circulatory system; Z84.1 Family history of disorders of kidney and ureter; Z80.2 Family history of malignant neoplasm of other respiratory and intrathoracic organs
CPT/HCPCS: 36415; 71045; 80048; 80053; 80074; 81001; 82550; 82948; 83880; 84484; 85025; 85610; 85730; 87077; 87088; 87186; 90732; 90935; 93005; 94640; 94664; 97039; 99291; G0378; J0696; J1644; J1940; J3490

== ENCOUNTER 2019-07-27 18:02 | Inpatient (IN) | payer MEDICARE ==
[~2019-07-27] VITALS: Ht 167.6 cm; Wt 48.9 kg
[2019-07-27 19:30] LABS: BASOPHILS % (AUTO) 0.3 % (0.0-5.0); EOSINOPHILS % (AUTO) 2.3 % (0.0-8.0); LYMPHOCYTES % (AUTO) 4.4 % (21.0-51.0); MEAN CORPUSCULAR HEMOGLOBIN 29.4 pg (27.0-33.0); MEAN CORPUSCULAR HGB CONC 32.3 g/dL (32.0-36.0); MONOCYTES % (AUTO) 11.9 % (3.0-13.0); NEUTROPHILS % (AUTO) 81.1 % (40.0-77.0); NUCLEATED RED BLOOD CELLS 0.1 % (0.0-0.19); PLATELET COUNT (AUTO) 238 K/uL (130-400); RED BLOOD CELL COUNT(AUTO) 3.07 MIL/uL (4.50-6.20); RED CELL DISTRIBUTION WIDTH 20.4 % (11.0-15.5); WHITE BLOOD COUNT (AUTO) 11.6 K/uL (4.8-10.8)
[2019-07-27 20:04] LABS: ALBUMIN 2.6 g/dL (3.5-5.0); BILIRUBIN,TOTAL 0.4 mg/dL (0.2-1.0); POTASSIUM 5.6 mmol/L (3.5-5.1)
[2019-07-27 20:15] LABS: CREATININE 10.9 mg/dL (0.5-1.5)
[2019-07-27] MEDS ORDERED: IPRATROPIUM/ALBUTEROL SULFATE 3 ML SOLUTION IH ONE (21:19)
[2019-07-27] MEDS ORDERED: FUROSEMIDE 10 MG/ML 4ML VIAL ONE (21:36)
[2019-07-27] MEDS ORDERED: FUROSEMIDE 10 MG/ML 4ML VIAL IV SCH (21:45)
[2019-07-27] MEDS ORDERED: METOPROLOL TARTRATE 50 MG TAB ONE (22:04)
[2019-07-27 22:28] LABS: APPEARANCE,URINE Clear (CLEAR); BILIRUBIN,URINE Negative (NEGATIVE); COLOR,URINE Yellow (YELLOW); GLUCOSE, URINE (UA) 250 mg/dL (NEGATIVE); KETONES,URINE Negative (NEGATIVE); LEUKOCYTE ESTERASE ,URINE Small (NEGATIVE); NITRATE,URINE Negative (NEGATIVE); OCCULT BLOOD,URINE Negative (NEGATIVE); PH,URINE 7.5 (5.0-8.0); PROTEIN,URINE 300 mg/dL (NEGATIVE); UROBILINOGEN,URINE 0.2 mg/dL (0.2-1.0)
[2019-07-27] MEDS: METOPROLOL TARTRATE 50 MG TAB PO SCH (22:30)
[2019-07-27 22:38] VITALS: BP 101/60
[2019-07-27] MEDS ORDERED: HYDR100T27 PO (22:49)
[2019-07-27] MEDS ORDERED: NIFE90TA45 PO (22:49)
--- NOTE | 2019-07-27 22:50 | NUR ---
Nursing Note Pt arrived to unit and put in bed with oxygen applied. Pt SOB with exertion but no pain. Lower extremity edema right leg/ankle +3, left leg/ankle +2. Generalized bruising on pt.
[2019-07-27 22:59] LABS: BACTERIA,URINE None Seen /HPF (None Seen); RBC,URINE None Seen /HPF (0-1); SQUAMOUS EPITHELIAL CELL,UR Rare /HPF (0-2)
--- NOTE | 2019-07-27 23:10 | NUR ---
Nursing Note- Paged Hospitalist about pt's Lasix and metoprolol, waiting for call back.
--- NOTE | 2019-07-27 23:56 | NUR ---
Nursing Note- Dr. Mendoza stopped by floor and informed to to not give the Lasix or metoprolol
[2019-07-28] MEDS: IPRATROPIUM/ALBUTEROL SULFATE 3 ML SOLUTION IH PRN ×2 (01:50→07:01)
--- NOTE | 2019-07-28 03:36 | NUR ---
Nursing Note Page dr. mendoza at [phone]. Spoke with doctor at [phone], Informed her that the pt is breathing 22Respirations with accessory muscles but pt is resting and oxygen in on 4L but sating at 86-89% and Neb treatment was already given by respiratory. Doctor stated she would come up and see him.
--- NOTE | 2019-07-28 03:45 | NUR ---
Nursing Note REGINA Mendoza came by and saw pt. Order ABG and lactic Acid
[2019-07-28 04:00] VITALS: BP 107/71
--- NOTE | 2019-07-28 04:01 | NUR ---
Nursing Note Informed CEMENT LOADER Reji the results of the ABG and also informed her that respiratory put pt on nonrebreather mask, which he is now sating at 90%, also that respiratory recommends BIPAP. CEMENT LOADER order for Bipap to be placed on pt.
--- NOTE | 2019-07-28 04:05 | NUR ---
Nursing Note Respiratory called and informed to put pt on bipap and titrate as needed per doctor
[2019-07-28 04:15] LABS: BASOPHILS % (AUTO) 0.5 % (0.0-5.0); EOSINOPHILS % (AUTO) 2.6 % (0.0-8.0); HEMATOCRIT 26.4 % (42-54); LYMPHOCYTES % (AUTO) 5.1 % (21.0-51.0); MEAN CORPUSCULAR HGB CONC 32.3 g/dL (32.0-36.0); MEAN CORPUSCULAR VOLUME 89.6 fL (79-99); MONOCYTES % (AUTO) 10.5 % (3.0-13.0); NEUTROPHILS % (AUTO) 81.3 % (40.0-77.0); NUCLEATED RED BLOOD CELLS 0.1 % (0.0-0.19); PLATELET COUNT (AUTO) 242 K/uL (130-400); RED BLOOD CELL COUNT(AUTO) 2.95 MIL/uL (4.50-6.20); RED CELL DISTRIBUTION WIDTH 19.8 % (11.0-15.5); WHITE BLOOD COUNT (AUTO) 12.7 K/uL (4.8-10.8)
[2019-07-28 04:24] LABS: ABG HCO3 17.4 mmol/L (21.0-28.0); ABG OXYGEN SATURATION 86.4 % (95.0-99.0); ABG PCO2 32 mmHg (35-48)
[2019-07-28 04:32] LABS: ALBUMIN 2.4 g/dL (3.5-5.0); BILIRUBIN,TOTAL 0.4 mg/dL (0.2-1.0); TOTAL PROTEIN, SERUM 6.6 g/dL (6.0-8.3)
[2019-07-28 05:01] LABS: CREATININE 11.3 mg/dL (0.5-1.5); POTASSIUM 6.3 mmol/L (3.5-5.1)
[2019-07-28] MEDS ORDERED: SODIUM BICARB 50MEQ 50ML VIAL ONE (05:13)
[2019-07-28] MEDS ORDERED: SODIUM BICARB 50MEQ 50ML VIAL IV STA (05:15)
--- NOTE | 2019-07-28 05:15 | NUR ---
Nursing Note REGINA Mendoza ordered for amp of sodium bicarb to be given to pt. Also informed of lab results of CR 11.3, BUN 137 and K 6.3. Knows pt waiting for dialysis this AM. no other orders at this time.
--- NOTE | 2019-07-28 05:58 | NUR ---
Nursing Note spoke to dialysis nurse, he stated he is on his way
[2019-07-28] MEDS: CEFTRIAXONE SODIUM 1 GM IVP SCH (06:19)
--- NOTE | 2019-07-28 06:29 | NUR ---
Nursing Note-dialysis Dialysis nurse arrived to floor
[2019-07-28 07:00] VITALS: BP 127/75
[2019-07-28] MEDS ORDERED: NON-FORMULARY MEDICATION 1 EACH (Ipratropium/Albuterol Sulfate (Combivent Respimat Inhal S IH PRN (08:15)
[2019-07-28] MEDS: METOPROLOL TARTRATE 50 MG TAB PO SCH ×3 (08:28→20:28)
[2019-07-28] MEDS: NIFEDIPINE ER 30 MG TAB PO SCH (08:28)
[2019-07-28] MEDS: ATORVASTATIN CALCIUM 10 MG TABLET PO SCH (08:29)
[2019-07-28] MEDS: SEVELAMER HCL 800 MG TABLET PO SCH ×3 (08:29→17:02)
[2019-07-28] MEDS: FOLIC ACID/VITAMIN B COMP W-C 1 MG CAP/TAB PO SCH (08:29)
[2019-07-28] MEDS: FAMOTIDINE/PF 20 MG/2 ML VIAL IV SCH (08:29)
[2019-07-28] MEDS: **HM** VIT D3 5000 UNITS PO SCH (08:30)
[2019-07-28] MEDS: HYDRALAZINE HCL 25 MG TABLET PO SCH ×2 (08:30→17:02)
[2019-07-28] MEDS ORDERED: HEPARIN SODIUM 5000UNIT/ML 1ML VIAL SQ SCH (09:00)
[2019-07-28] MEDS ORDERED: CLOPIDOGREL BISULFATE 75 MG TAB PO SCH (09:00)
[2019-07-28] MEDS ORDERED: EPOETIN ALFA 10,000 UNIT/ML VIAL SQ SCH (09:00)
[2019-07-28] MEDS ORDERED: FUROSEMIDE 10 MG/ML 4ML VIAL IV SCH (09:45)
[2019-07-28] MEDS: IPRATROPIUM 0.5 MG/2.5 ML INH IH PRN ×3 (10:59→23:14)
[2019-07-28 11:00] VITALS: BP 131/70
[2019-07-28 12:30] LABS: CREATININE 6.1 mg/dL (0.5-1.5); POTASSIUM 4.1 mmol/L (3.5-5.1)
--- NOTE | 2019-07-28 12:31 | NUR ---
DCP CM met with pt discussed dc plans. Pt is independent prior to admission, lives at home w/spouse. Pt has a walker, wheelchair, cane, shower chair, bedside commode, provider 4.5hrs/wk, [facility] that goes to the house once a week on Tuesdays, goes to [facility] for dialysis. Pt feels safe to go back home, spouse able to assist with transportation and needs as necessary. DC plan to home once stable. CM to cont to follow up. Addendum: 07/28/19 at 1236 by KIANA BARRETO LVN CM Amended: Links added.
[2019-07-28 16:00] VITALS: BP 121/82
[2019-07-28] MEDS ORDERED: FUROSEMIDE 80 MG TABLET PO SCH (17:00)
[2019-07-28] MEDS: APIXABAN 2.5 MG TABLET PO SCH ×2 (17:03→20:29)
--- NOTE | 2019-07-28 17:03 | NUR ---
Nutrition intervention: RD screen for Low BMI 18.9. Pt admitted for acute exacerbation to fluid overload. At time of RD visit pt on BIPAP, no family at bedside. Spoke to pt's RN states pt has missed dialysis sessions. Will continue to follow up for diet education and if necessary nutrition supplementation. Recommendations: Continue current diet therapy. Monitor I/O Consult RD as nutrition concerns arise. Addendum: 07/28/19 at [address] Amended: Links added.
[2019-07-28 19:51] VITALS: BP 107/70
[2019-07-29] VITALS (8 sets, daily range): BP systolic 100–152; BP diastolic 60–90
[2019-07-29] MEDS: HYDRALAZINE HCL 25 MG TABLET PO SCH ×4 (00:10→21:00)
--- NOTE | 2019-07-29 00:26 | NUR ---
placed pt on oxygen ext. Addendum: 07/29/19 at 0027 by CASTRO BURT RT Amended: Links added.
[2019-07-29 04:53] LABS: BASOPHILS % (AUTO) 0.4 % (0.0-5.0); EOSINOPHILS % (AUTO) 2.3 % (0.0-8.0); HEMATOCRIT 26.9 % (42-54); LYMPHOCYTES % (AUTO) 4.4 % (21.0-51.0); MEAN CORPUSCULAR HEMOGLOBIN 29.1 pg (27.0-33.0); MEAN CORPUSCULAR HGB CONC 32.8 g/dL (32.0-36.0); MEAN CORPUSCULAR VOLUME 88.9 fL (79-99); MONOCYTES % (AUTO) 12.6 % (3.0-13.0); NEUTROPHILS % (AUTO) 80.3 % (40.0-77.0); PLATELET COUNT (AUTO) 194 K/uL (130-400); RED BLOOD CELL COUNT(AUTO) 3.03 MIL/uL (4.50-6.20); RED CELL DISTRIBUTION WIDTH 19.8 % (11.0-15.5); WHITE BLOOD COUNT (AUTO) 13.1 K/uL (4.8-10.8)
[2019-07-29 05:07] LABS: % IRON SATURATION 5.8 % (30-44)
[2019-07-29 05:25] LABS: CREATININE 7.7 mg/dL (0.5-1.5); PHOSPHORUS 8.9 mg/dL (2.5-4.9); POTASSIUM 4.6 mmol/L (3.5-5.1)
[2019-07-29] MEDS: CEFTRIAXONE SODIUM 1 GM IVP SCH (05:28)
[2019-07-29] MEDS: IPRATROPIUM 0.5 MG/2.5 ML INH IH PRN ×2 (06:37→18:10)
[2019-07-29] MEDS: **HM** VIT D3 5000 UNITS PO SCH (09:00)
[2019-07-29] MEDS: FOLIC ACID/VITAMIN B COMP W-C 1 MG CAP/TAB PO SCH (10:37)
[2019-07-29] MEDS: METOPROLOL TARTRATE 50 MG TAB PO SCH ×3 (10:37→21:56)
[2019-07-29] MEDS: APIXABAN 2.5 MG TABLET PO SCH ×2 (10:37→20:54)
[2019-07-29] MEDS: FAMOTIDINE/PF 20 MG/2 ML VIAL IV SCH (10:43)
[2019-07-29] MEDS: NIFEDIPINE ER 30 MG TAB PO SCH (10:43)
[2019-07-29] MEDS: ATORVASTATIN CALCIUM 10 MG TABLET PO SCH (10:44)
[2019-07-29] MEDS: SEVELAMER HCL 800 MG TABLET PO SCH ×3 (10:49→16:51)
--- NOTE | 2019-07-29 13:45 | NUR ---
DR GAMEZ IN TO SEE PATIENT CBC, CMP, PHOS LABS ORDERED FOR AM AND VENOFER IV DAILY ORDERS PLACED
[2019-07-29] MEDS ORDERED: COMPOUND IV MISC 1 EACH IVSOLN MISC PRN (14:45)
[2019-07-29] MEDS ORDERED: LORAZEPAM 2 MG/ML 1 ML VIAL IVP ONE (19:00)
[2019-07-29 19:03] LABS: ABG BASE EXCESS -2.8 mmol/L (-2.0-3.0); ABG HCO3 24.1 mmol/L (21.0-28.0); ABG OXYGEN SATURATION 98.2 % (95.0-99.0); ABG PCO2 50 mmHg (35-48)
[2019-07-29] MEDS ORDERED: LORAZEPAM 2 MG/ML 1 ML VIAL ONE (19:30)
--- NOTE | 2019-07-29 19:37 | NUR ---
TACHYPNEIC / ANXIOUS/RESTLESS ATIVAN GIVEN IV BY RN X1 ORDERED, AUTOMOBILE BODY REPAIR SUPERVISOR RN RECEIVED CALL FROM DR GAMEZ STRONGLY RECOMMENDING FOR TRANSFER TO ICU, REGINA WILSON MADE AWARE OF PT STATUS AND RECOMMENDATION FOR TRANSFER , HS YUMI ANGUIANO INFORMED OF ORDER,PENDING INQUIRY OF ROOM AVAILABILITY, NO ACUTE DISTRESS AT THIS TIME V/S STABLE HR 120-130 AFIB Addendum: 07/29/19 at 2032 by ROB PASCUAL RN RN Amended: Links added.
[2019-07-29] MEDS ORDERED: HEPARIN SODIUM 5000UNIT/ML 1ML VIAL ONE (19:47)
[2019-07-29] MEDS ORDERED: HYDROXYZINE HCL 25 MG TABLET ONE (19:59)
[2019-07-29] MEDS ORDERED: HYDROXYZINE HCL 25 MG TABLET PO SCH (20:00)
--- NOTE | 2019-07-29 20:00 | NUR ---
MED ADMINISTRATION ATARAX 50MG GIVEN PO X1 ,TOLERATED WELL Addendum: 07/29/19 at 4 by ROB PASCUAL RN RN Amended: Links added.
[2019-07-29] MEDS ORDERED: SODIUM CHLORIDE 0.9% 1000ML 1,000 ML IV PRN (20:30)
[2019-07-29] MEDS ORDERED: 0.9% SODIUM CHLORIDE 1000 ML IV BAG IV PRN (20:30)
[2019-07-29] MEDS ORDERED: NITROGLYCERIN 0.4 MG SL TAB SL PRN (20:30)
[2019-07-29] MEDS ORDERED: HEPARIN SODIUM 5000UNIT/ML 1ML VIAL IJ PRN (20:30)
[2019-07-29] MEDS ORDERED: ACETAMINOPHEN 325 MG TAB PO PRN (20:30)
--- NOTE | 2019-07-30 01:55 | NUR ---
STATUS UPDATE CARD GRINDER HELPER MOLD YARN SUPERVISOR KATIE ENGLAND UPDATED ON PT STATUS ,UNAVAILABILITY OF PCCU ROOM AT THIS TIME . HS YUMI ANGUIANO ALSO INFORMED OF PT STABLE STATUS WITH SUCCESSFUL HD. WILL ENDORSE TO Diony GAMBOA WHETHER T0 PROCEED WITH TRANSFER OR KEEP PT ON MED/SURG FLOOR Addendum: 07/30/19 at 0445 by ROB PASCUAL RN RN Amended: Links added.
[2019-07-30 04:03] VITALS: BP 105/71
--- NOTE | 2019-07-30 04:20 | NUR ---
STATUS UPDATE BIPAP CONVERTED TO O2 PER NC , PER PT REQUEST ,DENIES ACUTE DISCOMFORT , RR 18-20 AT THIS TIME ,BREATHING EASY Addendum: 07/30/19 at 0509 by ROB PASCUAL RN RN Amended: Links added.
[2019-07-30 05:44] LABS: MEAN CORPUSCULAR HEMOGLOBIN 29.2 pg (27.0-33.0); MEAN CORPUSCULAR HGB CONC 32.6 g/dL (32.0-36.0); MEAN CORPUSCULAR VOLUME 89.4 fL (79-99); NUCLEATED RED BLOOD CELLS 0.1 % (0.0-0.19); PLATELET COUNT (AUTO) 123 K/uL (130-400); RED BLOOD CELL COUNT(AUTO) 2.79 MIL/uL (4.50-6.20); RED CELL DISTRIBUTION WIDTH 19.3 % (11.0-15.5); WHITE BLOOD COUNT (AUTO) 11.7 K/uL (4.8-10.8)
[2019-07-30 06:07] LABS: CREATININE 4.7 mg/dL (0.5-1.5); PHOSPHORUS 6.3 mg/dL (2.5-4.9); POTASSIUM 3.6 mmol/L (3.5-5.1)
[2019-07-30] MEDS: IPRATROPIUM 0.5 MG/2.5 ML INH IH PRN ×2 (06:48→18:33)
[2019-07-30 08:05] VITALS: BP 108/63
[2019-07-30] MEDS: **HM** VIT D3 5000 UNITS PO SCH (09:00)
[2019-07-30] MEDS: NIFEDIPINE ER 30 MG TAB PO SCH (09:44)
[2019-07-30] MEDS: APIXABAN 2.5 MG TABLET PO SCH ×2 (09:44→20:34)
[2019-07-30] MEDS: HYDRALAZINE HCL 25 MG TABLET PO SCH ×3 (09:45→20:33)
[2019-07-30] MEDS: FOLIC ACID/VITAMIN B COMP W-C 1 MG CAP/TAB PO SCH (09:45)
[2019-07-30] MEDS: MEROPENEM 1 GM VIAL IVP SCH (09:45)
[2019-07-30] MEDS: SEVELAMER HCL 800 MG TABLET PO SCH ×3 (09:45→16:39)
[2019-07-30] MEDS: METOPROLOL TARTRATE 50 MG TAB PO SCH ×3 (09:45→20:34)
[2019-07-30] MEDS: ATORVASTATIN CALCIUM 10 MG TABLET PO SCH (09:46)
[2019-07-30] MEDS: FAMOTIDINE/PF 20 MG/2 ML VIAL IV SCH (09:46)
[2019-07-30] MEDS: IRON SUCROSE COMPLEX 100 MG in SODIUM CHLORIDE 0.9% 50 ML IV SCH (09:48)
--- NOTE | 2019-07-30 10:38 | NUR ---
DR MCKEON IN TO PATIENT CONTINUE ON CURRENT TREATMENT. PLAN DISCHARGE IN AM
[2019-07-30 12:18] VITALS: BP 92/68
--- NOTE | 2019-07-30 13:05 | NUR ---
DR GAMEZ ROUNDED ON PATIENT , ORDERS FOR AM LAPS , EPOETIN 10,000 SQ TODAY.
[2019-07-30] MEDS ORDERED: EPOETIN ALFA 10,000 UNIT/ML VIAL SQ SCH (13:15)
[2019-07-30] MEDS ORDERED: COMPOUND IV REFRIGERATED 1 EACH IVSOLN MISC PRN (14:30)
[2019-07-30 15:50] VITALS: BP 102/65
--- NOTE | 2019-07-30 16:00 | NUR ---
DCP UPDATE: Spoke w Dr. Levy/Rosenda this afternoon. Per Dr. Levy pt will need SNf for IV ABX @ DC. Met w pt to discuss Md orders/recommendations. CORKY/PC consents signed for [facility]. Clinical/P[facility]SR faxed to [facility]. States will have Mayra eval in am.
[2019-07-30 19:32] VITALS: BP 111/70
[2019-07-31 00:18] VITALS: BP 156/99
[2019-07-31 04:14] VITALS: BP 119/74
[2019-07-31 05:50] LABS: HEMATOCRIT 27.2 % (42-54); MEAN CORPUSCULAR HGB CONC 32.6 g/dL (32.0-36.0); PLATELET COUNT (AUTO) 145 K/uL (130-400); RED BLOOD CELL COUNT(AUTO) 3.05 MIL/uL (4.50-6.20); RED CELL DISTRIBUTION WIDTH 20.4 % (11.0-15.5); WHITE BLOOD COUNT (AUTO) 11.5 K/uL (4.8-10.8)
[2019-07-31 05:59] LABS: CREATININE 6.3 mg/dL (0.5-1.5); PHOSPHORUS 7.5 mg/dL (2.5-4.9); POTASSIUM 4.1 mmol/L (3.5-5.1)
[2019-07-31 06:12] LABS: EOSINOPHILS % (MANUAL) 6 % (1-6); LYMPHOCYTES % (MANUAL) 6 % (22-44); MAN.DIFF COMMENT-IMPRESSION MANUAL DIFFERENTIAL; MONOCYTES % (MANUAL) 10 % (2-9); PLATELET MORPHOLOGY COMMENT ADEQUATE; SEGMENTED NEUTROPHILS % 78 % (40-70)
[2019-07-31] MEDS: IPRATROPIUM 0.5 MG/2.5 ML INH IH PRN ×2 (06:30→18:58)
[2019-07-31 07:30] VITALS: BP 133/72
[2019-07-31] MEDS: HYDRALAZINE HCL 25 MG TABLET PO SCH ×3 (08:44→21:00)
[2019-07-31] MEDS: FOLIC ACID/VITAMIN B COMP W-C 1 MG CAP/TAB PO SCH (08:45)
[2019-07-31] MEDS: SEVELAMER HCL 800 MG TABLET PO SCH ×3 (08:45→16:53)
[2019-07-31] MEDS: METOPROLOL TARTRATE 50 MG TAB PO SCH ×2 (08:45→21:44)
[2019-07-31] MEDS: NIFEDIPINE ER 30 MG TAB PO SCH ×2 (08:45→09:00)
[2019-07-31] MEDS: MEROPENEM 1 GM VIAL IVP SCH (08:46)
[2019-07-31] MEDS: FAMOTIDINE/PF 20 MG/2 ML VIAL IV SCH (08:46)
[2019-07-31] MEDS: APIXABAN 2.5 MG TABLET PO SCH ×2 (08:46→21:45)
[2019-07-31] MEDS: IRON SUCROSE COMPLEX 100 MG in SODIUM CHLORIDE 0.9% 50 ML IV SCH (08:46)
[2019-07-31] MEDS: ATORVASTATIN CALCIUM 10 MG TABLET PO SCH (08:47)
[2019-07-31] MEDS: **HM** VIT D3 5000 UNITS PO SCH (09:00)
[2019-07-31 11:00] VITALS: BP 120/76
[2019-07-31] MEDS ORDERED: LORAZEPAM 0.5 MG TABLET PO SCH (13:30)
--- NOTE | 2019-07-31 14:02 | NUR ---
CM Note: Declined placement Spouse, family, and pt spoke to CM. At this time pt declined placement, verbalized prefers to go back home. Educated pt for the placement reason as pt has hx of non-compliance w/treatments and dialysis days. Pt and spouse verbalized son will take pt to dialysis and will follow MD recommendation treatments at home. DC plan for home. Primary nurse aware. CM to cont to follow up.
[2019-07-31 16:00] VITALS: BP 113/69
[2019-07-31 20:00] VITALS: BP 110/68
--- NOTE | 2019-07-31 23:05 | NUR ---
REFUSED BATH PATIENT DOES NOT WANT A BATH AT THIS TIME. ASKED IF HE PREFERRED TO BATHE IN THE AM, SAID HE WOULD THINK ABOUT IT.
[2019-08-01] VITALS: BP 119/67
[2019-08-01 04:00] VITALS: BP 117/74
[2019-08-01 05:53] LABS: HEMATOCRIT 26.9 % (42-54); MEAN CORPUSCULAR HEMOGLOBIN 28.7 pg (27.0-33.0); MEAN CORPUSCULAR HGB CONC 32.4 g/dL (32.0-36.0); MEAN CORPUSCULAR VOLUME 88.7 fL (79-99); PLATELET COUNT (AUTO) 166 K/uL (130-400); RED BLOOD CELL COUNT(AUTO) 3.03 MIL/uL (4.50-6.20); RED CELL DISTRIBUTION WIDTH 20.4 % (11.0-15.5)
[2019-08-01 06:00] LABS: POTASSIUM 4.6 mmol/L (3.5-5.1)
[2019-08-01 06:04] LABS: CREATININE 7.9 mg/dL (0.5-1.5)
[2019-08-01] MEDS: IPRATROPIUM 0.5 MG/2.5 ML INH IH PRN (06:20)
[2019-08-01 07:00] VITALS: BP 117/79
[2019-08-01 07:34] LABS: EOSINOPHILS % (MANUAL) 4 % (1-6); LYMPHOCYTES % (MANUAL) 9 % (22-44); MONOCYTES % (MANUAL) 7 % (2-9); SEGMENTED NEUTROPHILS % 80 % (40-70)
[2019-08-01 07:35] LABS: MAN.DIFF COMMENT-IMPRESSION MANUAL DIFFERENTIAL
[2019-08-01 07:36] LABS: PLATELET MORPHOLOGY COMMENT ADEQUATE
[2019-08-01] MEDS: **HM** VIT D3 5000 UNITS PO SCH (09:00)
[2019-08-01] MEDS: HYDRALAZINE HCL 25 MG TABLET PO SCH (09:00)
[2019-08-01] MEDS: FOLIC ACID/VITAMIN B COMP W-C 1 MG CAP/TAB PO SCH (09:07)
[2019-08-01] MEDS: METOPROLOL TARTRATE 50 MG TAB PO SCH (09:07)
[2019-08-01] MEDS: NIFEDIPINE ER 30 MG TAB PO SCH (09:07)
[2019-08-01] MEDS: APIXABAN 2.5 MG TABLET PO SCH (09:07)
[2019-08-01] MEDS: SEVELAMER HCL 800 MG TABLET PO SCH (09:07)
[2019-08-01] MEDS: ATORVASTATIN CALCIUM 10 MG TABLET PO SCH (09:07)
[2019-08-01] MEDS: MEROPENEM 1 GM VIAL IVP SCH (09:08)
[2019-08-01] MEDS: IRON SUCROSE COMPLEX 100 MG in SODIUM CHLORIDE 0.9% 50 ML IV SCH (09:08)
[2019-08-01] MEDS: FAMOTIDINE/PF 20 MG/2 ML VIAL IV SCH (09:08)
[2019-08-01 11:00] VITALS: BP 113/70
--- NOTE | 2019-08-01 11:13 | NUR ---
DR GAMEZ MADE ROUNDS AT THIS TIME ,EXPLAINED TO MD THAT PATIENT WANTING TO LEAVE AMA . MD EXPLAINED TO PATIENT ON PLAN AND NEED FOR DIALYSIS HERE AND OUTPT. PATIENT VERBILIZED HE WILL FROM NOW ON GO TO HIS DIALYSIS OUTPT. PER MD TO GO AHEAD 30MIN BEFORE DIALYSIS GIVE THE ATIVAN X 1 ORDERED. PATIENT CALM AT THIS TIME .COUNTINUES TO WANT TO LEAVE TODAY BUT WILLING TO WAIT FOR PRIMARY DOCTOR ON FINAL DECISION .
--- NOTE | 2019-08-01 11:55 | NUR ---
PATIENT CONT TO DECIDE LEAVING AGAINST MEDICAL ADVICE . EXPLAINED TO PATIENT ON IMPORTANCE OF GETTING TREATMENT WITH DIALYSIS AND HIS UTI . AND SON AT BEDSIDE ,STATED" THAT S OK WE WILL TAKE HIM TO [place] " INFORMED THEM SHAANT IS RESPONSIBLE AT OWN RISK DUE TO NOT BEING CLEARED BY HOSPITAL . ALSO ADVISED THEM HE WILL NEED HIS OXYGEN .PER STATED "I FORGOT TO BRING IT BUT WE LIVE CLOSE BY HE WILL BE OK" . AMA PAPER SIGNED BY PATIENT. INFOEMD DR PRYOR ,ALIX BOLDEN,[place],AND FRANCO HAD PRESONALLY EXPLAINED TO PATIENT ON NEEDING DIALYSIS HERE BEFORE AND OUTPT .PATIENT STILL LET MD KNOW HE IS STILL GOING HOME ,NOT WILLING TO WAIT FOR TODAYS DIALYSIS TREATMENT .
--- NOTE | 2019-08-01 12:06 | NUR ---
CHARLEE ,CHARGE NURSE OF TODAY ALSO PRESENT ON DR GAMEZ ROUNDS REGARDING OF PATIENT DESISON OF WANTING TO LEAVE AMA
== END 2019-08-01 12:00 | disposition left against medical advice (07) | DRG 640 ==
LOC: EDH 18:02 → EDHIP 20:30 → 3AH 22:13
PROVIDERS: ADMIT Internal Medicine; ATTEND Internal Medicine
PROC: 5A1D70Z Performance of Urinary Filtration, Intermittent, Less than 6 Hours Per Day (ICD-10-PCS; principal; 2019-07-27)
PROC: 5A1D70Z Performance of Urinary Filtration, Intermittent, Less than 6 Hours Per Day (ICD-10-PCS; 2019-07-28)
PROC: 5A09357 Assistance with Respiratory Ventilation, Less than 24 Consecutive Hours, Continuous Positive Airway Pressure (ICD-10-PCS; 2019-07-28)
PROC: 5A1D70Z Performance of Urinary Filtration, Intermittent, Less than 6 Hours Per Day (ICD-10-PCS; 2019-07-29)
PROC: 5A09357 Assistance with Respiratory Ventilation, Less than 24 Consecutive Hours, Continuous Positive Airway Pressure (ICD-10-PCS; 2019-07-29)
PROC: 5A09357 Assistance with Respiratory Ventilation, Less than 24 Consecutive Hours, Continuous Positive Airway Pressure (ICD-10-PCS; 2019-07-30)
PROC: 5A09357 Assistance with Respiratory Ventilation, Less than 24 Consecutive Hours, Continuous Positive Airway Pressure (ICD-10-PCS; 2019-07-31)
PROC: 5A09357 Assistance with Respiratory Ventilation, Less than 24 Consecutive Hours, Continuous Positive Airway Pressure (ICD-10-PCS; 2019-08-01)
DX: E87.70 Fluid overload, unspecified (principal); N18.6 End stage renal disease; N39.0 Urinary tract infection, site not specified; E44.0 Moderate protein-calorie malnutrition; Z68.1 Body mass index [BMI] 19.9 or less, adult; D68.59 Other primary thrombophilia; I42.9 Cardiomyopathy, unspecified; J90 Pleural effusion, not elsewhere classified; R64 Cachexia; I12.0 Hypertensive chronic kidney disease with stage 5 chronic kidney disease or end stage renal disease; E87.2 Acidosis; E87.5 Hyperkalemia; E11.22 Type 2 diabetes mellitus with diabetic chronic kidney disease; D64.9 Anemia, unspecified; D72.829 Elevated white blood cell count, unspecified; E78.00 Pure hypercholesterolemia, unspecified; E78.5 Hyperlipidemia, unspecified; F41.9 Anxiety disorder, unspecified; I25.10 Atherosclerotic heart disease of native coronary artery without angina pectoris; J44.9 Chronic obstructive pulmonary disease, unspecified; I25.2 Old myocardial infarction; Z99.2 Dependence on renal dialysis; Z87.891 Personal history of nicotine dependence; Z99.81 Dependence on supplemental oxygen; Z88.5 Allergy status to narcotic agent; Z91.15 Patient's noncompliance with renal dialysis; Z91.14 Patient's other noncompliance with medication regimen; Z91.19 Patient's noncompliance with other medical treatment and regimen; Z83.3 Family history of diabetes mellitus; Z84.1 Family history of disorders of kidney and ureter; Z80.2 Family history of malignant neoplasm of other respiratory and intrathoracic organs; Z82.49 Family history of ischemic heart disease and other diseases of the circulatory system
CPT/HCPCS: 36415; 36600; 71045; 80048; 80053; 81001; 82803; 83540; 83550; 83605; 84100; 85025; 85027; 87040; 87088; 90935; 94640; 94660; 94664; G0378; J0696; J0885; J1644; J1756; J1940; J2060; J2185; J3490